=== PATIENT | female | born 1950 | race Caucasian/White ===

== ENCOUNTER 2019-01-01 10:41 | Emergency (ER) | payer OTHER ==
[~2019-01-01] VITALS: Ht 157.5 cm; Wt 49.9 kg
[~2019-01-01 10:41] MED LIST: HYDACE5; OXYC5
[2019-01-01] MEDS ORDERED: ESTR2 PO (11:07)
[2019-01-01] MEDS ORDERED: LISI5 PO (11:07)
[2019-01-01 12:20] LABS: BASOPHILS PERCENT AUTO 1 % (0-2); EOSINOPHILS ABSOLUTE AUTO 0.13 K/mm3 (0.00-0.68); EOSINOPHILS PERCENT AUTO 1 % (0-6); Hematocrit 38.8 % (33.0-51.0); Hemoglobin 12.8 g/dL (11.5-16.0); IMMATURE GRAN ABSOLUTE AUTO 0.03 K/mm3 (0.00-0.10); IMMATURE GRAN PERCENT AUTO 0 % (0-1); LYMPHOCYTES ABSOLUTE AUTO 1.57 K/mm3 (0.84-5.20); LYMPHOCYTES PERCENT AUTO 16 % (21-46); MONOCYTES ABSOLUTE AUTO 0.87 K/mm3 (0.16-1.47); MONOCYTES PERCENT AUTO 9 % (4-13); Mean Corpuscular HGB 32.1 pg (26.0-34.0); Mean Corpuscular Volume 97 fL (80-100); Mean Platelet Volume 9.8 fL (9.1-12.4); NEUTROPHILS ABSOLUTE AUTO 7.41 K/mm3 (1.96-9.15); NEUTROPHILS PERCENT AUTO 73 % (41-73); Platelet Count 288 K/mm3 (150-400); RDW Coefficient Variation 12.7 % (11.7-14.2); RDW Standard Deviation 45.5 fL (35.1-46.3); Red Blood Cell Count 3.99 M/mm3 (3.80-5.20); White Blood Cell Count 10.11 K/mm3 (4.00-11.30)
[2019-01-01 12:25] LABS: International Normalized Ratio 0.96; Prothrombin Time Results 10.2 Sec (9.7-11.5)
[2019-01-01 12:39] LABS: Albumin, Blood 3.6 g/dL (3.4-5.0); Bilirubin, Total 0.6 mg/dL (0.1-1.0); Bun/Creatinine Ratio 12.8 (12.0-20.0); Calcium, Blood 8.7 mg/dL (8.5-10.1); Creatinine, Blood 1.09 mg/dL (0.40-1.00); Globulin, Blood 3.7 g/dL (2.2-4.0); Potassium, Blood 3.7 mmol/L (3.5-5.5); Total Protein, Blood 7.3 g/dL (6.4-8.2)
[2019-01-01 12:57] LABS: Source, Urine Clean Catch
[2019-01-01 13:00] LABS: Appearance, Urine Hazy (Clear); Bilirubin, Urine Neg (Neg); Blood, Urine 4+ (Neg); Color, Urine Yellow (P-Yellow); Glucose Qualitative, Urine Neg (Neg); Ketones, Urine Neg (Neg); Leukocyte Esterase, Urine 3+ (Neg); Nitrite, Urine Pos (Neg); Protein, Urine 2+ (Neg); Urobilinogen, Urine NORM (Normal); pH, Urine 6.5 (5.0-8.0)
[2019-01-01 13:09] LABS: Bacteria Many /hpf; Squamous Epithelial Cells Rare /hpf (Few); White Blood Cells, Urine TNTC /hpf (0-5)
[2019-01-01] MEDS ORDERED: Keflex500 MG PO (14:54)
[2019-01-01] MEDS ORDERED: PERCOCET 10-321 EACH PO (14:54)
== END 2019-01-01 16:48 | disposition home or self-care (01) ==
LOC: ER 10:41
PROVIDERS: Physician Assistant
DX: S51.011A Laceration without foreign body of right elbow, initial encounter (principal); S30.1XXA Contusion of abdominal wall, initial encounter; S00.83XA Contusion of other part of head, initial encounter; S50.12XA Contusion of left forearm, initial encounter; S50.11XA Contusion of right forearm, initial encounter; S80.01XA Contusion of right knee, initial encounter; M25.511 Pain in right shoulder; N39.0 Urinary tract infection, site not specified; Z85.038 Personal history of other malignant neoplasm of large intestine; Z93.6 Other artificial openings of urinary tract status; Z90.49 Acquired absence of other specified parts of digestive tract; Z93.3 Colostomy status; Z79.899 Other long term (current) drug therapy; V43.52XA Car driver injured in collision with other type car in traffic accident, initial encounter
CPT/HCPCS: 71260; 73090; 73564; 74177; 80053; 81001; 83690; 85025; 85610; 87077; 87086; 87186; 90471; 90714; 96361; 96365-59; 96375; 96376; 99284-25; J0696; J1885; J2405; J3010; J7030; Q9967

== ENCOUNTER 2022-10-13 07:18 | Emergency (ER) | payer MEDICARE, OTHER ==
[~2022-10-13] VITALS: Ht 157.5 cm; Wt 49.9 kg
[~2022-10-13 07:18] MED LIST changes: +ESTR2 PO; +Keflex500 MG PO; +LISI5 PO; +PERCOCET 10-321 EACH PO
[2022-10-13] MEDS ORDERED: CLIMARA1 EACH TOP (07:38)
[2022-10-13] MEDS ORDERED: MELO7.5 (07:38)
[2022-10-13 08:10] LABS: BASOPHILS ABSOLUTE AUTO 0.12 K/mm3 (0.00-0.23); BASOPHILS PERCENT AUTO 0 % (0-2); EOSINOPHILS ABSOLUTE AUTO 0.03 K/mm3 (0.00-0.68); EOSINOPHILS PERCENT AUTO 0 % (0-6); Hematocrit 42.2 % (33.0-51.0); Hemoglobin 14.1 g/dL (11.5-16.0); IMMATURE GRAN ABSOLUTE AUTO 0.21 K/mm3 (0.00-0.10); IMMATURE GRAN PERCENT AUTO 1 % (0-1); LYMPHOCYTES ABSOLUTE AUTO 0.46 K/mm3 (0.84-5.20); LYMPHOCYTES PERCENT AUTO 2 % (21-46); MONOCYTES ABSOLUTE AUTO 0.89 K/mm3 (0.16-1.47); MONOCYTES PERCENT AUTO 3 % (4-13); Mean Corpuscular HGB 31.1 pg (26.0-34.0); Mean Corpuscular HGB Conc 33.4 g/dL (31.5-36.5); Mean Corpuscular Volume 93 fL (80-100); NEUTROPHILS ABSOLUTE AUTO 27.85 K/mm3 (1.96-9.15); NEUTROPHILS PERCENT AUTO 94 % (41-73); Platelet Count 400 K/mm3 (150-400); RDW Coefficient Variation 13.2 % (11.7-14.2); RDW Standard Deviation 45.2 fL (35.1-46.3); Red Blood Cell Count 4.53 M/mm3 (3.80-5.20); White Blood Cell Count 29.56 K/mm3 (4.00-11.30)
[2022-10-13 08:29] LABS: BAND PERCENT MAN 3 % (0-8); BASOPHILS PERCENT MAN 0 % (0-2); EOSINOPHILS PERCENT MAN 0 % (0-6); LYMPHOCYTES ABSOLUTE MAN 1.18 K/mm3 (0.84-5.20); LYMPHOCYTES PERCENT MAN 4 % (21-46); METAMYELOCYTE ABSOLUTE MAN 0.29 K/mm3 (0.00-0.00); METAMYELOCYTE PERCENT MAN 1 % (0-0); MONOCYTES ABSOLUTE MAN 0.59 K/mm3 (0.16-1.47); MONOCYTES PERCENT MAN 2 % (4-13); NEUTROPHILS ABSOLUTE MAN 27.49 K/mm3 (1.96-9.15); SEG NEUTROPHILS PERCENT MAN 90 % (41-73); TOTAL CELLS COUNTED 100
[2022-10-13 08:30] LABS: Albumin, Blood 3.2 g/dL (3.4-5.0); Albumin/Globulin Ratio 0.8 (0.8-1.8); Bilirubin, Total 0.4 mg/dL (0.1-1.0); Bun/Creatinine Ratio 18.7 (12.0-20.0); Calcium, Blood 9.3 mg/dL (8.5-10.1); Creatinine, Blood 2.09 mg/dL (0.40-1.00); Globulin, Blood 4.2 g/dL (2.2-4.0); Potassium, Blood 4.3 mmol/L (3.5-5.5); Total Protein, Blood 7.4 g/dL (6.4-8.2)
[2022-10-13 11:09] LABS: Source, Urine Straight Cath
[2022-10-13 11:15] LABS: Appearance, Urine Hazy (Clear); Bilirubin, Urine Neg (Neg); Blood, Urine 4+ (Neg); Color, Urine Yellow (P-Yellow); Glucose Qualitative, Urine Neg (Neg); Ketones, Urine Neg (Neg); Leukocyte Esterase, Urine 3+ (Neg); Nitrite, Urine Neg (Neg); Protein, Urine 2+ (Neg); Urobilinogen, Urine NORM (Normal)
[2022-10-13 11:32] LABS: Bacteria Many /hpf; Squamous Epithelial Cells Rare /hpf (Few)
[2022-10-13 14:45] VITALS: BP 120/71
== END 2022-10-13 14:50 | disposition short-term general hospital (02) ==
LOC: ER 07:18
PROVIDERS: Emergency Medicine
DX: N17.9 Acute kidney failure, unspecified (principal); N13.30 Unspecified hydronephrosis; N12 Tubulo-interstitial nephritis, not specified as acute or chronic
CPT/HCPCS: 51702; 74177; 80053; 81001; 85025; 87077; 87086; 87186; 96365-59; 96375-59; 96376-59; 99285-25; J0696; J2270; J2405; J7030; Q9967

== ENCOUNTER 2023-01-13 14:44 | Inpatient (IN) | payer MEDICARE, OTHER ==
[~2023-01-13] VITALS: Ht 157.5 cm; Wt 49.9 kg
[~2023-01-13 14:44] MED LIST changes: +CLIMARA1 EACH TOP; +MELO7.5
[2023-01-13 15:36] LABS: BASOPHILS ABSOLUTE AUTO 0.12 K/mm3 (0.00-0.23); BASOPHILS PERCENT AUTO 1 % (0-2); EOSINOPHILS ABSOLUTE AUTO 0.55 K/mm3 (0.00-0.68); EOSINOPHILS PERCENT AUTO 4 % (0-6); Hematocrit 41.8 % (33.0-51.0); Hemoglobin 13.3 g/dL (11.5-16.0); IMMATURE GRAN ABSOLUTE AUTO 0.13 K/mm3 (0.00-0.10); IMMATURE GRAN PERCENT AUTO 1 % (0-1); LYMPHOCYTES ABSOLUTE AUTO 1.94 K/mm3 (0.84-5.20); LYMPHOCYTES PERCENT AUTO 13 % (21-46); MONOCYTES ABSOLUTE AUTO 0.92 K/mm3 (0.16-1.47); MONOCYTES PERCENT AUTO 6 % (4-13); Mean Corpuscular HGB 28.5 pg (26.0-34.0); Mean Corpuscular HGB Conc 31.8 g/dL (31.5-36.5); Mean Corpuscular Volume 90 fL (80-100); Mean Platelet Volume 9.1 fL (9.1-12.4); NEUTROPHILS ABSOLUTE AUTO 11.59 K/mm3 (1.96-9.15); NEUTROPHILS PERCENT AUTO 76 % (41-73); Platelet Count 643 K/mm3 (150-400); RDW Coefficient Variation 14.2 % (11.7-14.2); RDW Standard Deviation 46.4 fL (35.1-46.3); Red Blood Cell Count 4.67 M/mm3 (3.80-5.20); White Blood Cell Count 15.25 K/mm3 (4.00-11.30)
[2023-01-13 16:09] LABS: Albumin, Blood 3.4 g/dL (3.4-5.0); Albumin/Globulin Ratio 0.7 (0.8-1.8); Bilirubin, Total 0.2 mg/dL (0.1-1.0); Bun/Creatinine Ratio 81.9 (12.0-20.0); Calcium, Blood 9.5 mg/dL (8.5-10.1); Creatinine, Blood 1.66 mg/dL (0.40-1.00); Potassium, Blood 4.8 mmol/L (3.5-5.5); Total Protein, Blood 8.4 g/dL (6.4-8.2)
[2023-01-14] VITALS (56 sets, daily range): BP systolic 82–134; BP diastolic 42–100
[2023-01-14 05:22] LABS: BASOPHILS ABSOLUTE AUTO 0.14 K/mm3 (0.00-0.23); BASOPHILS PERCENT AUTO 1 % (0-2); EOSINOPHILS ABSOLUTE AUTO 0.74 K/mm3 (0.00-0.68); EOSINOPHILS PERCENT AUTO 6 % (0-6); Hematocrit 33.7 % (33.0-51.0); Hemoglobin 10.5 g/dL (11.5-16.0); IMMATURE GRAN PERCENT AUTO 1 % (0-1); LYMPHOCYTES ABSOLUTE AUTO 2.31 K/mm3 (0.84-5.20); LYMPHOCYTES PERCENT AUTO 17 % (21-46); MONOCYTES ABSOLUTE AUTO 1.01 K/mm3 (0.16-1.47); MONOCYTES PERCENT AUTO 8 % (4-13); Mean Corpuscular HGB 28.5 pg (26.0-34.0); Mean Corpuscular HGB Conc 31.2 g/dL (31.5-36.5); Mean Corpuscular Volume 91 fL (80-100); Mean Platelet Volume 9.2 fL (9.1-12.4); NEUTROPHILS ABSOLUTE AUTO 9.21 K/mm3 (1.96-9.15); NEUTROPHILS PERCENT AUTO 68 % (41-73); Platelet Count 506 K/mm3 (150-400); RDW Coefficient Variation 14.5 % (11.7-14.2); RDW Standard Deviation 48.5 fL (35.1-46.3); Red Blood Cell Count 3.69 M/mm3 (3.80-5.20); White Blood Cell Count 13.51 K/mm3 (4.00-11.30)
[2023-01-14 05:59] LABS: Albumin, Blood 2.5 g/dL (3.4-5.0); Albumin/Globulin Ratio 0.7 (0.8-1.8); Bilirubin, Total 0.2 mg/dL (0.1-1.0); Bun/Creatinine Ratio 82.3 (12.0-20.0); Calcium, Blood 7.7 mg/dL (8.5-10.1); Creatinine, Blood 1.41 mg/dL (0.40-1.00); Globulin, Blood 3.7 g/dL (2.2-4.0); Potassium, Blood 4.3 mmol/L (3.5-5.5); Total Protein, Blood 6.2 g/dL (6.4-8.2)
[2023-01-14] MEDS ORDERED: EUTHYROX88 MCG PO (07:51)
--- NOTE | 2023-01-14 09:12 | NUR ---
AM NOTE... ASSUMED CARE OF PT AT 0700, PT IS A&Ox4. PT ARRIVED TO THE UNIT FROM THE ER WITH LEVOPHED RUNNING AT 0.5MCG/MIN, THIS WAS STOPPED D/T PT'S MAPS >75. SHE IS IN SR W/PACs IN THE 70'S. NO EDEMA IS NOTED ON THIS ASSESSMENT. SHE IS ON RA WITH O2 SATS>95% L/S CLEAR T/O. BT PRESENT AND HYPERACTIVE. PT HAS A COLOSTOMY AND SUPERPUBIC CATH IN PLACE, THE COLOSTOMY APPLIANCE WAS LEAKING ON ADMIT AND CHANGED BY JANES JIMENEZ. THE PT'S SUPERPUBIC CATH WAS ALSO LEAKING AROUND THE SITE. THE PT'S SKIN AROUND THE SUPERPUBIC SITE IS VERY RED AND EXCORIATED (PICTURES IN THE CHART.) THE PT'S SUPERPUBIC CATH WAS IRRIGATED BY GILL JIMENEZ, ONCE IRRIGATED THE CATH DRAINED YELLOW URINE WITH COPIOUS AMOUNTS OF VERY THICK BROWN/SHERMAN SEDIMENT FOR A FEW MINS THEN THE FLOW WOULD STOP UNTIL IT WAS IRRIGATED AGAIN. CALL LIGHT IN REACH WILL CONTINUE TO MONITOR
--- NOTE | 2023-01-14 15:43 | NUR ---
Pt. is awake in bed and welcomes my visit. Spouse is present. Both Pt. and spouse are unsettled about delays in addressing her condition. Both verbalize a desire to get it addressed quickly. Listen with empathy and a calming presence. Facilitate a life review and consider matters of healthcare and pt. medical issues. Spouse became a primary spokesman during the visit. Prayed with Pt. Pt. displayed evidence of ambivilance toward prayer, but did verbalize gratitude for the spiritual care visit.
--- NOTE | 2023-01-14 17:19 | NUR ---
SHIFT SUMMARY.... PT'S VS HAVE BEEN STABLE T/O THIS SHIFT, SHE WAS ON 0.5MCG/MIN OF LEVOPHED SHORTLY BEFORE ARRIVING TO THIS UNIT WHEN IT WAS STOPPED AT 0730. THE PT HAS BEEN MEDICATED FOR PAIN PER EMAR WITH GOOD RESULTS. THE PT'S SUPERPUBIC JIMENEZ HAS BEEN CLOGGED MOST OF THIS SHIFT, IT WILL DRAIN WHEN IRRIGATED BUT QUICKLY CLOGGES AGAIN, THE PT'S SUPERPUBIC SITE IS DRAINING URINE AND STOOL FROM THE STOMA, THE PT'S COLOSTOMY HAS SCANT OUTPUT THIS SHIFT. THE PT'S WAS AT THE BEDSIDE MOST OF THIS SHIFT. CALL LIGHT IN REACH WILL CONTINUE TO MONITOR UNTIL REPORT IS GIVEN TO ONCOMING RN.
[2023-01-14 17:21] LABS: Albumin, Blood 2.8 g/dL (3.4-5.0); Anion Gap 9 mmol/L (6-16); Blood Urea Nitrogen 89 mg/dL (8-24); Bun/Creatinine Ratio 77.4 (12.0-20.0); CO2, Blood 20 mmol/L (21-32); Calcium, Blood 7.8 mg/dL (8.5-10.1); Chloride, Blood 113 mmol/L (98-108); Creatinine, Blood 1.15 mg/dL (0.40-1.00); Glomerular Filtration Rate 51 (60-); Glucose, Blood 105 mg/dL (70-99); Phosphorus, Blood 2.9 mg/dL (2.5-4.9); Potassium, Blood 3.8 mmol/L (3.5-5.5); Sodium, Blood 142 mmol/L (136-145)
[2023-01-14 17:33] LABS: Source, Urine Suprapubic Cath
[2023-01-14 17:50] LABS: Appearance, Urine Cloudy (Clear); Blood, Urine 5+ (Neg); Color, Urine Brown (P-Yellow); Glucose Qualitative, Urine Neg (Neg); Ketones, Urine Neg (Neg); Leukocyte Esterase, Urine 3+ (Neg); Nitrite, Urine Neg (Neg); Protein, Urine 2+ (Neg); Urobilinogen, Urine NORM (Normal)
[2023-01-14 18:27] LABS: Bilirubin, Urine 1+ (Neg)
[2023-01-14 18:30] LABS: Bacteria Many /hpf; Hyaline Casts 0-2 /lpf (0-2); Red Blood Cells, Urine 25-50 /hpf (0-2); Squamous Epithelial Cells Few /hpf (Few)
[2023-01-14 18:31] LABS: Amorphous Light (0-Heavy)
--- NOTE | 2023-01-14 21:30 | NUR ---
ABD DRESSING CHANGED SATURATED DRESSING TO ABD REMOVED, SITE CLEANSED WITH WOUND CLEANSER. TWO MEXTRA SUPERABSORBENT PADS PLACED OVER CATHETER INSERTION SITE, ABD PLACED OVER TOP WITH FABRIC TAPE. EDUCATED PATIENT TO NOTIFY NURSING STAFF IF THERE IS ANY LEAKAGE FOR DRESSING CHANGE.
--- NOTE | 2023-01-14 21:57 | NUR ---
PAIN PATIENT SUPRAPUBIC CATHETER DRESSING BECAME SOILED AND WAS LEAKING ONTO THE BED. DRESSING CHANGED AND PATIENT C/O 09/18 PAIN. CALL MADE TO KAYDEN WRIGHT AND ORDER RECEIVED FOR PERCOCET 5-325MG PO Q4H PRN.
[2023-01-15] VITALS (34 sets, daily range): BP systolic 85–136; BP diastolic 49–89
--- NOTE | 2023-01-15 02:04 | NUR ---
DRESSING CHANGE SUPRAPUBIC CATHETER DRESSING CHANGED FOR THE SECOND TIME THIS SHIFT AFTER BECOMING SATURATED WITH URINE AND STOOL. DRESSIING REPLACED SAME PREVIOUS-SEE NURSE NOTE.
[2023-01-15 03:24] LABS: BASOPHILS ABSOLUTE AUTO 0.15 K/mm3 (0.00-0.23); BASOPHILS PERCENT AUTO 2 % (0-2); EOSINOPHILS ABSOLUTE AUTO 0.75 K/mm3 (0.00-0.68); EOSINOPHILS PERCENT AUTO 8 % (0-6); Hematocrit 31.6 % (33.0-51.0); IMMATURE GRAN ABSOLUTE AUTO 0.05 K/mm3 (0.00-0.10); IMMATURE GRAN PERCENT AUTO 1 % (0-1); LYMPHOCYTES ABSOLUTE AUTO 2.47 K/mm3 (0.84-5.20); LYMPHOCYTES PERCENT AUTO 26 % (21-46); MONOCYTES ABSOLUTE AUTO 0.76 K/mm3 (0.16-1.47); MONOCYTES PERCENT AUTO 8 % (4-13); Mean Corpuscular HGB 28.6 pg (26.0-34.0); Mean Corpuscular HGB Conc 31.6 g/dL (31.5-36.5); Mean Corpuscular Volume 90 fL (80-100); NEUTROPHILS ABSOLUTE AUTO 5.34 K/mm3 (1.96-9.15); NEUTROPHILS PERCENT AUTO 56 % (41-73); Platelet Count 465 K/mm3 (150-400); RDW Coefficient Variation 14.3 % (11.7-14.2); RDW Standard Deviation 47.4 fL (35.1-46.3); White Blood Cell Count 9.52 K/mm3 (4.00-11.30)
[2023-01-15 03:46] LABS: Bun/Creatinine Ratio 50.8 (12.0-20.0); Calcium, Blood 7.3 mg/dL (8.5-10.1); Creatinine, Blood 1.18 mg/dL (0.40-1.00); Potassium, Blood 3.6 mmol/L (3.5-5.5)
--- NOTE | 2023-01-15 06:44 | NUR ---
SHIFT SUMMARY PATIENT SUPRAPUBIC CATHETER LEAKING PERSISTS T/O SHIFT. DRESSING CHANGED TWICE-SEE PREVIOUS NURSE NOTES. MEDICATED FOR PAIN PER EMAR. LEVOPHED REMAINED OFF WITH MAPS 60'S-70'S. NO OTHER CHANGES THIS SHIFT.
--- NOTE | 2023-01-15 07:27 | NUR ---
AM NOTE... ASSUMED CARE OF PT AT 0700. PT IS A&Ox4. SHE IS IN SR W/PACs IN THE 50'S WHILE ASLEEP 60'S-70'S WHILE AWAKE. BP IS STABLE WITH MAPS>75. NO EDEMA IS NOTED ON ASSESSMENT. SHE IS ON RA WITH O2 SATS>95% L/S CLEAR T/O. BT PRESENT AND HYPERACTIVE, ABD IS TENDER TO PALPATION. COLOSTOMY IS PINK AND MOIST DRAINING LIQUID BROWN STOOL TO GRAVITY. THE PT'S SUPERPUBIC IS LEAKING URINE AND STOOL, THE SKIN OF HER ABD IS EXCORIATED AND RED. ABD PADS AND ABSORBANT PADS ARE CURRENTLY C/D/I AND CHANGED FREQUENTLY D/T COPIOUS AMOUNTS OF DRAINAGE. WILL CONTINUE TO MONITOR.
--- NOTE | 2023-01-15 17:37 | NUR ---
SHIFT SUMMARY... NO ACUTE NEGATIVE CHANGES NOTED THIS SHIFT. PT'S VS STABLE. PT HAS BEEN MEDICATED FOR PAIN PER EMAR WITH GOOD RESULTS. THE PT'S SUPERPUBIC CATH HAS DONE WELL WITH THE FLEXISEAL SET AROUND THE STOMA AND SET TO SUCTION, THIS HAS IMPROVED THE PT'S SKIN CONDITION GREATLY OVER THIS SHIFT. PLANS FOR THE PT TO TRANSFER TO THE MEDICAL FLOOR. CALL LIGHT IN REACH WILL CONTINUE TO MONITOR UNTIL REPORT IS GIVEN TO MED FLOOR RN
--- NOTE | 2023-01-15 19:01 | NUR ---
PT ARRIVED TO ROOM FROM ICU15 VIA BED. TRANSFERRED TO BED AND CLEANED UP. BAG ATTACHED TO CONDUIT STOMA NOW ON SUCTIONED, WHICH WAS BEING DONE ACCORDING TO PERSON TRANSFERRING PT. SHE IS A/OX4 AND APPROPRIATE. WILL REPORT TO ONCOMING SHIFT.
[2023-01-16 03:08] VITALS: BP 148/66
--- NOTE | 2023-01-16 05:12 | NUR ---
SHIFT SUMMARY. NO ACUTE CHANGES NOTED. PATIENTS PAIN ASSESSED AND MEDICATED PER EMAR. PATIENT IS ALERT, ABLE TO MAKE HER NEEDS KNOWN, AND CALLS APPROPRIATELY. PATIENT HAS A FLEXISEAL AROUND THE STOMA SET TO SUCTION. SUPRAPUBIC CATHETER IS DRANING STOOL AND URINE. SCANT AMOUNT OF DRAINAGE FROM FLEXISEAL NOTED IN ABDOMINAL REGION. BED IS LOCKED IN THE LOWEST POSITION WITH CALL LIGHT IN REACH.
[2023-01-16 05:26] LABS: Hematocrit 30.7 % (33.0-51.0); Hemoglobin 9.7 g/dL (11.5-16.0); Mean Corpuscular HGB 28.8 pg (26.0-34.0); Mean Corpuscular HGB Conc 31.6 g/dL (31.5-36.5); Mean Corpuscular Volume 91 fL (80-100); Mean Platelet Volume 9.1 fL (9.1-12.4); Platelet Count 477 K/mm3 (150-400); RDW Coefficient Variation 14.5 % (11.7-14.2); RDW Standard Deviation 48.2 fL (35.1-46.3); Red Blood Cell Count 3.37 M/mm3 (3.80-5.20); White Blood Cell Count 11.12 K/mm3 (4.00-11.30)
[2023-01-16 05:52] LABS: Bun/Creatinine Ratio 37.3 (12.0-20.0); Calcium, Blood 7.6 mg/dL (8.5-10.1); Creatinine, Blood 0.99 mg/dL (0.40-1.00); Potassium, Blood 3.8 mmol/L (3.5-5.5)
[2023-01-16 07:26] VITALS: BP 128/62
[2023-01-16] MEDS ORDERED: ACET325 PO (11:25)
[2023-01-16] MEDS ORDERED: CEFU500T30 PO (11:26)
--- NOTE | 2023-01-16 13:18 | NUR ---
WOUND CARE PT WITH COPIOUS AMOUNTS OF URINE/FECES DRAINING FROM SUPRAPUBIC CATH SITE. SHE REPORTS THAT SHE WILL REQUIRE SURGICAL INTERVENTION AT [facility]. UNFORTUNATELY UNTIL THAT TIME SHE WILL NEED TO MANAGE DRAINAGE. PERISKIN AROUND SITE IS EXTREMELY DENUDED. WE ARE UNABLE TO POUCH D/T CATHETER. SHE WILL REQUIRE MULTIPLE DRESSING CHANGES DAILY. WOULD RECOMMEND NICKEL THICK BARRIER CREAM WITH ANTIFUNGAL POWDER AT EACH CHANGE COVERED BY GAUZE AND EXU-DRY, TAPE. WOULD APPLY HYDROCOLLOID DRESSING OVER OSTOMY APPLIANCE TO PREVENT DRAINAGE FROM SEEPING INTO APPLIANCE.
== END 2023-01-16 13:19 | disposition home health service (06) | DRG 698 ==
LOC: ER 14:44 → ERHOLD 14:45 → ICUE 14:45 → ERHOLD 01-14 07:31 → ICUE 01-14 07:31 → MEDS 01-15 18:22 → ENPENDDIS 01-16 10:59 → MEDS 01-16 13:19
PROVIDERS: Emergency Medicine; Internal Medicine; ADMIT Internal Medicine
PROC: 3E033XZ Introduction of Vasopressor into Peripheral Vein, Percutaneous Approach (ICD-10-PCS; principal; 2023-01-14)
DX: T83.518A Infection and inflammatory reaction due to other urinary catheter, initial encounter (principal); A41.9 Sepsis, unspecified organism; G93.41 Metabolic encephalopathy; J18.9 Pneumonia, unspecified organism; R65.21 Severe sepsis with septic shock; N17.9 Acute kidney failure, unspecified; E87.20 Acidosis, unspecified; L03.311 Cellulitis of abdominal wall; N12 Tubulo-interstitial nephritis, not specified as acute or chronic; K94.09 Other complications of colostomy; E03.9 Hypothyroidism, unspecified; E86.0 Dehydration; F17.210 Nicotine dependence, cigarettes, uncomplicated; Z85.828 Personal history of other malignant neoplasm of skin; Z28.21 Immunization not carried out because of patient refusal
CPT/HCPCS: 36415; 71045; 74177; 80048; 80053; 80069; 81001; 83605; 83880; 84145; 85025; 85027; 87040; 87086; 96361; 96365; 96367; 96375; 96376; 99285-25; A9270; G0378; J0456; J0696; J1650; J2270; J2405; J3010; J7030; J7050; J7060; Q9967

== ENCOUNTER → 2023-02-23 | Outpatient (CLI) | payer MEDICARE, OTHER ==
[~2023-02-23] MED LIST changes: +ACET325 PO; +CEFU500T30 PO; +EUTHYROX88 MCG PO
[2023-02-23 11:42] LABS: BASOPHILS ABSOLUTE AUTO 0.19 K/mm3 (0.00-0.23); BASOPHILS PERCENT AUTO 2 % (0-2); EOSINOPHILS ABSOLUTE AUTO 0.77 K/mm3 (0.00-0.68); EOSINOPHILS PERCENT AUTO 7 % (0-6); Hematocrit 33.1 % (33.0-51.0); IMMATURE GRAN ABSOLUTE AUTO 0.04 K/mm3 (0.00-0.10); IMMATURE GRAN PERCENT AUTO 0 % (0-1); LYMPHOCYTES ABSOLUTE AUTO 1.65 K/mm3 (0.84-5.20); LYMPHOCYTES PERCENT AUTO 14 % (21-46); MONOCYTES ABSOLUTE AUTO 1.07 K/mm3 (0.16-1.47); MONOCYTES PERCENT AUTO 9 % (4-13); Mean Corpuscular HGB 28.2 pg (26.0-34.0); Mean Corpuscular HGB Conc 30.2 g/dL (31.5-36.5); Mean Corpuscular Volume 93 fL (80-100); Mean Platelet Volume 9.6 fL (9.1-12.4); NEUTROPHILS ABSOLUTE AUTO 7.79 K/mm3 (1.96-9.15); NEUTROPHILS PERCENT AUTO 68 % (41-73); Platelet Count 528 K/mm3 (150-400); RDW Coefficient Variation 15.9 % (11.7-14.2); RDW Standard Deviation 54.3 fL (35.1-46.3); Red Blood Cell Count 3.55 M/mm3 (3.80-5.20); White Blood Cell Count 11.51 K/mm3 (4.00-11.30)
[2023-02-23 12:04] LABS: Alanine Aminotransfer (ALT/SGP 27 U/L (12-78); Albumin, Blood 2.4 g/dL (3.4-5.0); Albumin/Globulin Ratio 0.5 (0.8-1.8); Alk Phos 83 U/L (50-136); Anion Gap 6 mmol/L (6-16); Aspartate Aminotrans (AST/SGOT 13 U/L (12-37); Bilirubin, Total 0.3 mg/dL (0.1-1.0); Blood Urea Nitrogen 72 mg/dL (8-24); Bun/Creatinine Ratio 69.2 (12.0-20.0); CO2, Blood 26 mmol/L (21-32); Calcium, Blood 9.2 mg/dL (8.5-10.1); Chloride, Blood 110 mmol/L (98-108); Creatinine, Blood 1.04 mg/dL (0.40-1.00); Globulin, Blood 4.4 g/dL (2.2-4.0); Glomerular Filtration Rate 58 (60-); Glucose, Blood 97 mg/dL (70-99); Magnesium, Blood 2.4 mg/dL (1.6-2.4); Potassium, Blood 4.6 mmol/L (3.5-5.5); Prealbumin, Blood 18.3 mg/dL (20.0-40.0); Sodium, Blood 142 mmol/L (136-145); Total Protein, Blood 6.8 g/dL (6.4-8.2); Triglycerides 113 mg/dL (30-160)
== END ==
LOC: LAB 10:58 → LAB SHORT 10:58
PROVIDERS: Internal Medicine Nephrology
DX: N99.538 Other complication of continent stoma of urinary tract (principal); D50.9 Iron deficiency anemia, unspecified; E86.9 Volume depletion, unspecified; N18.32 Chronic kidney disease, stage 3b; E55.9 Vitamin D deficiency, unspecified
CPT/HCPCS: 80053; 82330; 83735; 84134; 84478; 85025; 86140

== ENCOUNTER → 2023-03-02 | Outpatient (CLI) | payer MEDICARE, OTHER ==
[2023-03-02 11:38] LABS: BASOPHILS ABSOLUTE AUTO 0.14 K/mm3 (0.00-0.23); BASOPHILS PERCENT AUTO 1 % (0-2); EOSINOPHILS ABSOLUTE AUTO 0.74 K/mm3 (0.00-0.68); EOSINOPHILS PERCENT AUTO 7 % (0-6); Hematocrit 34.1 % (33.0-51.0); Hemoglobin 10.5 g/dL (11.5-16.0); IMMATURE GRAN ABSOLUTE AUTO 0.06 K/mm3 (0.00-0.10); IMMATURE GRAN PERCENT AUTO 1 % (0-1); LYMPHOCYTES ABSOLUTE AUTO 1.79 K/mm3 (0.84-5.20); LYMPHOCYTES PERCENT AUTO 16 % (21-46); MONOCYTES ABSOLUTE AUTO 0.92 K/mm3 (0.16-1.47); MONOCYTES PERCENT AUTO 8 % (4-13); Mean Corpuscular HGB 28.2 pg (26.0-34.0); Mean Corpuscular HGB Conc 30.8 g/dL (31.5-36.5); Mean Corpuscular Volume 92 fL (80-100); Mean Platelet Volume 9.8 fL (9.1-12.4); NEUTROPHILS PERCENT AUTO 68 % (41-73); Platelet Count 516 K/mm3 (150-400); RDW Coefficient Variation 15.9 % (11.7-14.2); RDW Standard Deviation 53.4 fL (35.1-46.3); Red Blood Cell Count 3.72 M/mm3 (3.80-5.20); White Blood Cell Count 11.25 K/mm3 (4.00-11.30)
[2023-03-02 12:07] LABS: Alanine Aminotransfer (ALT/SGP 84 U/L (12-78); Albumin, Blood 2.7 g/dL (3.4-5.0); Albumin/Globulin Ratio 0.6 (0.8-1.8); Alk Phos 125 U/L (50-136); Anion Gap 7 mmol/L (6-16); Aspartate Aminotrans (AST/SGOT 36 U/L (12-37); Bilirubin, Total 0.2 mg/dL (0.1-1.0); Blood Urea Nitrogen 88 mg/dL (8-24); Bun/Creatinine Ratio 77.2 (12.0-20.0); C-REACTIVE PROTEIN, EXT RANGE 0.991 mg/dL (0.000-0.300); CO2, Blood 23 mmol/L (21-32); Calcium, Blood 9.5 mg/dL (8.5-10.1); Chloride, Blood 109 mmol/L (98-108); Creatinine, Blood 1.14 mg/dL (0.40-1.00); Globulin, Blood 4.7 g/dL (2.2-4.0); Glomerular Filtration Rate 52 (60-); Glucose, Blood 136 mg/dL (70-99); Magnesium, Blood 2.5 mg/dL (1.6-2.4); Potassium, Blood 3.8 mmol/L (3.5-5.5); Prealbumin, Blood 32.5 mg/dL (20.0-40.0); Sodium, Blood 139 mmol/L (136-145); Total Protein, Blood 7.4 g/dL (6.4-8.2); Triglycerides 118 mg/dL (30-160)
== END ==
LOC: LAB SHORT 11:18 → LAB 11:18
PROVIDERS: Surgery
DX: E43 Unspecified severe protein-calorie malnutrition (principal); N99.538 Other complication of continent stoma of urinary tract; E86.9 Volume depletion, unspecified; D50.9 Iron deficiency anemia, unspecified; N18.32 Chronic kidney disease, stage 3b; N32.1 Vesicointestinal fistula; L03.311 Cellulitis of abdominal wall
CPT/HCPCS: 80053; 82330; 83735; 84134; 84478; 85025; 86140

== ENCOUNTER → 2023-03-09 | Outpatient (CLI) | payer MEDICARE, OTHER ==
[2023-03-09 16:00] LABS: Alanine Aminotransfer (ALT/SGP 66 U/L (12-78); Albumin/Globulin Ratio 0.7 (0.8-1.8); Alk Phos 122 U/L (50-136); Anion Gap 10 mmol/L (6-16); Aspartate Aminotrans (AST/SGOT 23 U/L (12-37); Bilirubin, Total 0.3 mg/dL (0.1-1.0); Blood Urea Nitrogen 130 mg/dL (8-24); Bun/Creatinine Ratio 84.4 (12.0-20.0); CO2, Blood 25 mmol/L (21-32); Calcium, Blood 9.5 mg/dL (8.5-10.1); Chloride, Blood 97 mmol/L (98-108); Creatinine, Blood 1.54 mg/dL (0.40-1.00); Globulin, Blood 4.6 g/dL (2.2-4.0); Glomerular Filtration Rate 36 (60-); Glucose, Blood 107 mg/dL (70-99); Magnesium, Blood 3.2 mg/dL (1.6-2.4); Potassium, Blood 4.2 mmol/L (3.5-5.5); Prealbumin, Blood 34.3 mg/dL (20.0-40.0); Sodium, Blood 132 mmol/L (136-145); Total Protein, Blood 7.6 g/dL (6.4-8.2); Triglycerides 110 mg/dL (30-160)
== END | disposition home or self-care (01) ==
LOC: LAB 14:51 → LAB SHORT 14:51
PROVIDERS: Surgery
DX: E43 Unspecified severe protein-calorie malnutrition (principal); E86.9 Volume depletion, unspecified; D50.9 Iron deficiency anemia, unspecified; N18.32 Chronic kidney disease, stage 3b; N32.1 Vesicointestinal fistula; N99.538 Other complication of continent stoma of urinary tract
CPT/HCPCS: 80053; 82330; 83735; 84134; 84478

== ENCOUNTER → 2023-03-16 | Outpatient (CLI) | payer MEDICARE, OTHER ==
[2023-03-16 15:42] LABS: BASOPHILS PERCENT AUTO 1 % (0-2); EOSINOPHILS ABSOLUTE AUTO 0.14 K/mm3 (0.00-0.68); EOSINOPHILS PERCENT AUTO 1 % (0-6); Hematocrit 36.3 % (33.0-51.0); Hemoglobin 11.7 g/dL (11.5-16.0); IMMATURE GRAN ABSOLUTE AUTO 0.08 K/mm3 (0.00-0.10); IMMATURE GRAN PERCENT AUTO 1 % (0-1); LYMPHOCYTES PERCENT AUTO 6 % (21-46); MONOCYTES ABSOLUTE AUTO 0.81 K/mm3 (0.16-1.47); MONOCYTES PERCENT AUTO 5 % (4-13); Mean Corpuscular HGB 27.5 pg (26.0-34.0); Mean Corpuscular HGB Conc 32.2 g/dL (31.5-36.5); Mean Corpuscular Volume 85 fL (80-100); Mean Platelet Volume 10.9 fL (9.1-12.4); NEUTROPHILS ABSOLUTE AUTO 13.36 K/mm3 (1.96-9.15); NEUTROPHILS PERCENT AUTO 87 % (41-73); Platelet Count 461 K/mm3 (150-400); RDW Standard Deviation 46.6 fL (35.1-46.3); Red Blood Cell Count 4.25 M/mm3 (3.80-5.20); White Blood Cell Count 15.39 K/mm3 (4.00-11.30)
[2023-03-16 16:23] LABS: Prealbumin, Blood 30.7 mg/dL (20.0-40.0)
[2023-03-16 16:28] LABS: Albumin, Blood 3.1 g/dL (3.4-5.0); Albumin/Globulin Ratio 0.7 (0.8-1.8); Bilirubin, Total 0.2 mg/dL (0.1-1.0); Bun/Creatinine Ratio 111.2 (12.0-20.0); Calcium, Blood 10.7 mg/dL (8.5-10.1); Creatinine, Blood 1.6 mg/dL (0.40-1.00); Globulin, Blood 4.5 g/dL (2.2-4.0); Potassium, Blood 3.8 mmol/L (3.5-5.5); Total Protein, Blood 7.6 g/dL (6.4-8.2)
[2023-03-17 10:12] LABS: Magnesium, Blood 3.5 mg/dL (1.6-2.4); Phosphorus, Blood 4.6 mg/dL (2.5-4.9)
== END ==
LOC: LAB 15:05 → LAB SHORT 15:05
PROVIDERS: Surgery
DX: E43 Unspecified severe protein-calorie malnutrition (principal); N99.538 Other complication of continent stoma of urinary tract; E86.9 Volume depletion, unspecified; D50.9 Iron deficiency anemia, unspecified; N18.32 Chronic kidney disease, stage 3b
CPT/HCPCS: 80053; 82330; 83735; 84100; 84134; 85025

== ENCOUNTER → 2023-03-23 | Outpatient (CLI) | payer MEDICARE, OTHER ==
[2023-03-23 14:07] LABS: Magnesium, Blood 3.1 mg/dL (1.6-2.4); Phosphorus, Blood 5.7 mg/dL (2.5-4.9); Triglycerides 81 mg/dL (30-160)
[2023-03-24 19:11] LABS: A/G RATIO 1.2 (1.2-2.2); ALKALINE PHOSPHATASE, S 92 IU/L (44-121); ALT (SGPT) 15 IU/L (0-32); AST (SGOT) 13 IU/L (0-40); BILIRUBIN, TOTAL <0.2 mg/dL (0.0-1.2); BUN 117 mg/dL (8-27); BUN/CREATININE RATIO 70 (12-28); CALCIUM, SERUM 9.1 mg/dL (8.7-10.3); CARBON DIOXIDE, TOTAL 15 mmol/L (20-29); CHLORIDE, SERUM 100 mmol/L (96-106); CREATININE, SERUM 1.68 mg/dL (0.57-1.00); GLOBULIN, TOTAL 2.9 g/dL (1.5-4.5); GLUCOSE, SERUM 64 mg/dL (70-99); POTASSIUM, SERUM 4.1 mmol/L (3.5-5.2); PROTEIN, TOTAL, SERUM 6.3 g/dL (6.0-8.5); SODIUM, SERUM 135 mmol/L (134-144)
== END ==
LOC: LAB 11:15 → LAB SHORT 11:15
PROVIDERS: Surgery
DX: E43 Unspecified severe protein-calorie malnutrition (principal); N99.538 Other complication of continent stoma of urinary tract; E86.9 Volume depletion, unspecified; D50.9 Iron deficiency anemia, unspecified; M83.2 Adult osteomalacia due to malabsorption; N32.1 Vesicointestinal fistula; L03.311 Cellulitis of abdominal wall
CPT/HCPCS: 80053; 83735; 84100; 84478

== ENCOUNTER → 2023-05-27 | Outpatient (CLI) | payer MEDICARE, OTHER ==
[2023-05-27 16:21] LABS: Alanine Aminotransfer (ALT/SGP 9 U/L (12-78); Albumin, Blood 2.5 g/dL (3.4-5.0); Albumin/Globulin Ratio 0.5 (0.8-1.8); Alk Phos 66 U/L (50-136); Anion Gap 12 mmol/L (3-11); Aspartate Aminotrans (AST/SGOT 13 U/L (12-37); Bilirubin, Total 0.3 mg/dL (0.1-1.0); Blood Urea Nitrogen 49 mg/dL (8-24); Bun/Creatinine Ratio 71.6 (12.0-20.0); CO2, Blood 20 mmol/L (21-32); Calcium, Blood 10.1 mg/dL (8.5-10.1); Chloride, Blood 110 mmol/L (98-108); Creatinine, Blood 0.68 mg/dL (0.40-1.00); Globulin, Blood 4.7 g/dL (2.2-4.0); Glomerular Filtration Rate 93 (60-); Glucose, Blood 93 mg/dL (70-99); Magnesium, Blood 2.7 mg/dL (1.6-2.4); Phosphorus, Blood 3.3 mg/dL (2.5-4.9); Potassium, Blood 4.7 mmol/L (3.5-5.5); Sodium, Blood 137 mmol/L (136-145); Total Protein, Blood 7.2 g/dL (6.4-8.2); Triglycerides 83 mg/dL (30-160)
[2023-05-27 16:34] LABS: BASOPHILS ABSOLUTE AUTO 0.13 K/mm3 (0.00-0.23); BASOPHILS PERCENT AUTO 1 % (0-2); EOSINOPHILS ABSOLUTE AUTO 0.76 K/mm3 (0.00-0.68); EOSINOPHILS PERCENT AUTO 6 % (0-6); Hematocrit 32.9 % (33.0-51.0); Hemoglobin 10.3 g/dL (11.5-16.0); IMMATURE GRAN ABSOLUTE AUTO 0.06 K/mm3 (0.00-0.10); IMMATURE GRAN PERCENT AUTO 0 % (0-1); LYMPHOCYTES ABSOLUTE AUTO 1.93 K/mm3 (0.84-5.20); LYMPHOCYTES PERCENT AUTO 14 % (21-46); MONOCYTES ABSOLUTE AUTO 1.15 K/mm3 (0.16-1.47); MONOCYTES PERCENT AUTO 8 % (4-13); Mean Corpuscular HGB Conc 31.3 g/dL (31.5-36.5); Mean Corpuscular Volume 86 fL (80-100); NEUTROPHILS ABSOLUTE AUTO 9.78 K/mm3 (1.96-9.15); NEUTROPHILS PERCENT AUTO 71 % (41-73); RDW Coefficient Variation 17.8 % (11.7-14.2); RDW Standard Deviation 56.3 fL (35.1-46.3); Red Blood Cell Count 3.81 M/mm3 (3.80-5.20); White Blood Cell Count 13.81 K/mm3 (4.00-11.30)
[2023-05-27 17:08] LABS: Mean Platelet Volume 9.2 fL (9.1-12.4); Platelet Count 813 K/mm3 (150-400)
== END ==
LOC: LAB 14:53 → LAB SHORT 14:53
PROVIDERS: Surgery
DX: N32.1 Vesicointestinal fistula (principal); E86.0 Dehydration; N19 Unspecified kidney failure; E43 Unspecified severe protein-calorie malnutrition
CPT/HCPCS: 80053; 83735; 84100; 84478; 85025

== ENCOUNTER → 2023-06-01 | Outpatient (CLI) | payer MEDICARE, OTHER ==
[2023-06-01 15:49] LABS: Alanine Aminotransfer (ALT/SGP 10 U/L (12-78); Albumin, Blood 2.5 g/dL (3.4-5.0); Albumin/Globulin Ratio 0.5 (0.8-1.8); Alk Phos 62 U/L (50-136); Anion Gap 10 mmol/L (3-11); Aspartate Aminotrans (AST/SGOT 11 U/L (12-37); Bilirubin, Total 0.3 mg/dL (0.1-1.0); Blood Urea Nitrogen 47 mg/dL (8-24); Bun/Creatinine Ratio 71.6 (12.0-20.0); CO2, Blood 21 mmol/L (21-32); Calcium, Blood 9.8 mg/dL (8.5-10.1); Chloride, Blood 114 mmol/L (98-108); Creatinine, Blood 0.66 mg/dL (0.40-1.00); Globulin, Blood 4.6 g/dL (2.2-4.0); Glomerular Filtration Rate 94 (60-); Glucose, Blood 152 mg/dL (70-99); Magnesium, Blood 2.5 mg/dL (1.6-2.4); Phosphorus, Blood 1.7 mg/dL (2.5-4.9); Potassium, Blood 4.3 mmol/L (3.5-5.5); Sodium, Blood 141 mmol/L (136-145); Total Protein, Blood 7.1 g/dL (6.4-8.2); Triglycerides 103 mg/dL (30-160)
== END | disposition home or self-care (01) ==
LOC: LAB 12:08 → LAB SHORT 12:08
PROVIDERS: Surgery
DX: N32.1 Vesicointestinal fistula (principal); N19 Unspecified kidney failure; E46 Unspecified protein-calorie malnutrition; K63.2 Fistula of intestine; E86.9 Volume depletion, unspecified
CPT/HCPCS: 80053; 83735; 84100; 84478

== ENCOUNTER → 2023-06-03 | Outpatient (CLI) | payer MEDICARE, OTHER ==
[2023-06-03 15:43] LABS: Alanine Aminotransfer (ALT/SGP 7 U/L (12-78); Albumin, Blood 2.4 g/dL (3.4-5.0); Albumin/Globulin Ratio 0.6 (0.8-1.8); Alk Phos 56 U/L (50-136); Anion Gap 9 mmol/L (3-11); Aspartate Aminotrans (AST/SGOT 8 U/L (12-37); Bilirubin, Total 0.2 mg/dL (0.1-1.0); Blood Urea Nitrogen 58 mg/dL (8-24); Bun/Creatinine Ratio 76.2 (12.0-20.0); CO2, Blood 21 mmol/L (21-32); Chloride, Blood 117 mmol/L (98-108); Creatinine, Blood 0.76 mg/dL (0.40-1.00); Glomerular Filtration Rate 84 (60-); Glucose, Blood 134 mg/dL (70-99); Magnesium, Blood 2.7 mg/dL (1.6-2.4); Phosphorus, Blood 1.9 mg/dL (2.5-4.9); Potassium, Blood 4.2 mmol/L (3.5-5.5); Sodium, Blood 143 mmol/L (136-145); Total Protein, Blood 6.4 g/dL (6.4-8.2); Triglycerides 98 mg/dL (30-160)
[2023-06-03 15:48] LABS: BASOPHILS ABSOLUTE AUTO 0.14 K/mm3 (0.00-0.23); BASOPHILS PERCENT AUTO 1 % (0-2); EOSINOPHILS ABSOLUTE AUTO 0.57 K/mm3 (0.00-0.68); EOSINOPHILS PERCENT AUTO 4 % (0-6); Hematocrit 33.4 % (33.0-51.0); Hemoglobin 10.3 g/dL (11.5-16.0); IMMATURE GRAN ABSOLUTE AUTO 0.09 K/mm3 (0.00-0.10); IMMATURE GRAN PERCENT AUTO 1 % (0-1); LYMPHOCYTES ABSOLUTE AUTO 1.58 K/mm3 (0.84-5.20); LYMPHOCYTES PERCENT AUTO 11 % (21-46); MONOCYTES ABSOLUTE AUTO 1.41 K/mm3 (0.16-1.47); MONOCYTES PERCENT AUTO 9 % (4-13); Mean Corpuscular HGB Conc 30.8 g/dL (31.5-36.5); Mean Corpuscular Volume 88 fL (80-100); NEUTROPHILS ABSOLUTE AUTO 11.14 K/mm3 (1.96-9.15); NEUTROPHILS PERCENT AUTO 75 % (41-73); RDW Coefficient Variation 18.8 % (11.7-14.2); RDW Standard Deviation 60.3 fL (35.1-46.3); Red Blood Cell Count 3.81 M/mm3 (3.80-5.20); White Blood Cell Count 14.93 K/mm3 (4.00-11.30)
== END | disposition home or self-care (01) ==
LOC: LAB SHORT 13:48 → LAB EV 13:48
PROVIDERS: Surgery
DX: T81.32XD Disruption of internal operation (surgical) wound, not elsewhere classified, subsequent encounter (principal); N19 Unspecified kidney failure; E46 Unspecified protein-calorie malnutrition
CPT/HCPCS: 80053; 83735; 84100; 84478; 85025

== ENCOUNTER → 2023-07-13 | Outpatient (CLI) | payer MEDICARE, OTHER ==
[~2023-07-13] MED LIST changes: +BENADRYL25 MG PO; +CEFTRIAXON1 GM/50 M1; +EPIPEN0.3 MG/0.3 IM; +HYDMOR4 PO; +METR250 PO; +Methocarbamol750 MG PO; +NALOXONE H0.4 MG/1 M IM
[2023-07-13 14:32] LABS: BASOPHILS ABSOLUTE AUTO 0.11 K/mm3 (0.00-0.23); BASOPHILS PERCENT AUTO 1 % (0-2); EOSINOPHILS ABSOLUTE AUTO 0.49 K/mm3 (0.00-0.68); EOSINOPHILS PERCENT AUTO 4 % (0-6); Hematocrit 23.7 % (33.0-51.0); Hemoglobin 7.6 g/dL (11.5-16.0); IMMATURE GRAN ABSOLUTE AUTO 0.08 K/mm3 (0.00-0.10); IMMATURE GRAN PERCENT AUTO 1 % (0-1); LYMPHOCYTES ABSOLUTE AUTO 1.46 K/mm3 (0.84-5.20); LYMPHOCYTES PERCENT AUTO 11 % (21-46); MONOCYTES ABSOLUTE AUTO 1.04 K/mm3 (0.16-1.47); MONOCYTES PERCENT AUTO 8 % (4-13); Mean Corpuscular HGB 27.2 pg (26.0-34.0); Mean Corpuscular HGB Conc 32.1 g/dL (31.5-36.5); Mean Corpuscular Volume 85 fL (80-100); NEUTROPHILS ABSOLUTE AUTO 9.89 K/mm3 (1.96-9.15); NEUTROPHILS PERCENT AUTO 76 % (41-73); RDW Coefficient Variation 17.4 % (11.7-14.2); RDW Standard Deviation 54.3 fL (35.1-46.3); Red Blood Cell Count 2.79 M/mm3 (3.80-5.20); White Blood Cell Count 13.07 K/mm3 (4.00-11.30)
[2023-07-13 15:24] LABS: Alanine Aminotransfer (ALT/SGP 68 U/L (12-78); Albumin, Blood 2.1 g/dL (3.4-5.0); Albumin/Globulin Ratio 0.5 (0.8-1.8); Alk Phos 136 U/L (50-136); Anion Gap 13 mmol/L (3-11); Aspartate Aminotrans (AST/SGOT 43 U/L (12-37); Bilirubin, Total 0.3 mg/dL (0.1-1.0); Blood Urea Nitrogen 43 mg/dL (8-24); Bun/Creatinine Ratio 66.2 (12.0-20.0); CO2, Blood 19 mmol/L (21-32); Calcium, Blood 10.1 mg/dL (8.5-10.1); Chloride, Blood 107 mmol/L (98-108); Creatinine, Blood 0.65 mg/dL (0.40-1.00); Globulin, Blood 4.4 g/dL (2.2-4.0); Glomerular Filtration Rate 94 (60-); Glucose, Blood 94 mg/dL (70-99); Magnesium, Blood 2.1 mg/dL (1.6-2.4); Phosphorus, Blood 3.9 mg/dL (2.5-4.9); Potassium, Blood 4.8 mmol/L (3.5-5.5); Sodium, Blood 134 mmol/L (136-145); Total Protein, Blood 6.5 g/dL (6.4-8.2); Triglycerides 107 mg/dL (30-160)
[2023-07-13 15:46] LABS: Mean Platelet Volume 8.5 fL (9.1-12.4); Platelet Count 867 K/mm3 (150-400)
== END ==
LOC: LAB 12:32 → LAB SHORT 12:32
PROVIDERS: Surgery
DX: N32.1 Vesicointestinal fistula (principal); Z79.899 Other long term (current) drug therapy
CPT/HCPCS: 80053; 82330; 83735; 84100; 84478; 85025; 86140

== ENCOUNTER → 2023-07-20 | Outpatient (CLI) | payer MEDICARE, OTHER ==
[2023-07-20 12:28] LABS: BASOPHILS ABSOLUTE AUTO 0.12 K/mm3 (0.00-0.23); BASOPHILS PERCENT AUTO 1 % (0-2); EOSINOPHILS ABSOLUTE AUTO 0.43 K/mm3 (0.00-0.68); EOSINOPHILS PERCENT AUTO 5 % (0-6); Hematocrit 22.5 % (33.0-51.0); IMMATURE GRAN ABSOLUTE AUTO 0.03 K/mm3 (0.00-0.10); IMMATURE GRAN PERCENT AUTO 0 % (0-1); LYMPHOCYTES ABSOLUTE AUTO 1.09 K/mm3 (0.84-5.20); LYMPHOCYTES PERCENT AUTO 12 % (21-46); MONOCYTES ABSOLUTE AUTO 0.85 K/mm3 (0.16-1.47); MONOCYTES PERCENT AUTO 9 % (4-13); Mean Corpuscular HGB 26.5 pg (26.0-34.0); Mean Corpuscular HGB Conc 31.1 g/dL (31.5-36.5); Mean Corpuscular Volume 85 fL (80-100); Mean Platelet Volume 8.3 fL (9.1-12.4); NEUTROPHILS ABSOLUTE AUTO 6.84 K/mm3 (1.96-9.15); NEUTROPHILS PERCENT AUTO 73 % (41-73); Platelet Count 693 K/mm3 (150-400); RDW Coefficient Variation 17.3 % (11.7-14.2); RDW Standard Deviation 54.5 fL (35.1-46.3); Red Blood Cell Count 2.64 M/mm3 (3.80-5.20); White Blood Cell Count 9.36 K/mm3 (4.00-11.30)
[2023-07-20 12:52] LABS: Magnesium, Blood 1.7 mg/dL (1.6-2.4); Prealbumin, Blood 13.6 mg/dL (20.0-40.0)
[2023-07-20 12:58] LABS: Alanine Aminotransfer (ALT/SGP 12 U/L (12-78); Albumin, Blood 2.1 g/dL (3.4-5.0); Albumin/Globulin Ratio 0.5 (0.8-1.8); Alk Phos 96 U/L (50-136); Anion Gap 12 mmol/L (3-11); Aspartate Aminotrans (AST/SGOT <3 U/L (12-37); Bilirubin, Total 0.2 mg/dL (0.1-1.0); Blood Urea Nitrogen 49 mg/dL (8-24); Bun/Creatinine Ratio 67.9 (12.0-20.0); CO2, Blood 17 mmol/L (21-32); Calcium, Blood 10.1 mg/dL (8.5-10.1); Chloride, Blood 112 mmol/L (98-108); Creatinine, Blood 0.72 mg/dL (0.40-1.00); Globulin, Blood 3.9 g/dL (2.2-4.0); Glomerular Filtration Rate 89 (60-); Glucose, Blood 106 mg/dL (70-99); Phosphorus, Blood 3.5 mg/dL (2.5-4.9); Potassium, Blood 4.5 mmol/L (3.5-5.5); Sodium, Blood 136 mmol/L (136-145); Triglycerides 42 mg/dL (30-160)
== END ==
LOC: LAB SHORT 11:53 → LAB 11:53
PROVIDERS: Surgery
DX: N32.1 Vesicointestinal fistula (principal); E43 Unspecified severe protein-calorie malnutrition
CPT/HCPCS: 80053; 82330; 83735; 84100; 84134; 84478; 85025; 86140

== ENCOUNTER → 2023-07-23 | Outpatient (CLI) | payer MEDICARE, OTHER ==
[2023-07-23 14:22] LABS: BASOPHILS ABSOLUTE AUTO 0.11 K/mm3 (0.00-0.23); BASOPHILS PERCENT AUTO 1 % (0-2); EOSINOPHILS ABSOLUTE AUTO 0.48 K/mm3 (0.00-0.68); EOSINOPHILS PERCENT AUTO 5 % (0-6); Hematocrit 21.8 % (33.0-51.0); Hemoglobin 6.6 g/dL (11.5-16.0); IMMATURE GRAN ABSOLUTE AUTO 0.04 K/mm3 (0.00-0.10); IMMATURE GRAN PERCENT AUTO 0 % (0-1); LYMPHOCYTES ABSOLUTE AUTO 1.05 K/mm3 (0.84-5.20); LYMPHOCYTES PERCENT AUTO 10 % (21-46); MONOCYTES PERCENT AUTO 11 % (4-13); Mean Corpuscular HGB Conc 30.3 g/dL (31.5-36.5); Mean Corpuscular Volume 86 fL (80-100); Mean Platelet Volume 8.3 fL (9.1-12.4); NEUTROPHILS ABSOLUTE AUTO 7.43 K/mm3 (1.96-9.15); NEUTROPHILS PERCENT AUTO 73 % (41-73); Platelet Count 668 K/mm3 (150-400); RDW Coefficient Variation 17.7 % (11.7-14.2); RDW Standard Deviation 55.8 fL (35.1-46.3); Red Blood Cell Count 2.54 M/mm3 (3.80-5.20); White Blood Cell Count 10.21 K/mm3 (4.00-11.30)
== END ==
LOC: LAB 12:05 → LAB SHORT 12:05
PROVIDERS: Surgery
DX: N32.1 Vesicointestinal fistula (principal)
CPT/HCPCS: 85025

== ENCOUNTER 2023-07-29 10:16 | Emergency (ER) | payer MEDICARE, OTHER ==
[~2023-07-29] VITALS: Ht 157.5 cm; Wt 36.3 kg
[~2023-07-29 10:16] MED LIST changes: -BENADRYL25 MG PO; -CEFTRIAXON1 GM/50 M1; -EPIPEN0.3 MG/0.3 IM; -HYDMOR4 PO; -METR250 PO; -Methocarbamol750 MG PO; -NALOXONE H0.4 MG/1 M IM
[2023-07-29] MEDS ORDERED: Methocarbamol750 MG PO (10:39)
[2023-07-29] MEDS ORDERED: METR250 PO (10:40)
[2023-07-29] MEDS ORDERED: CEFTRIAXON1 GM/50 M1 (10:41)
[2023-07-29] MEDS ORDERED: BENADRYL25 MG PO (10:41)
[2023-07-29] MEDS ORDERED: NALOXONE H0.4 MG/1 M IM (10:42)
[2023-07-29] MEDS ORDERED: HYDMOR4 PO (10:42)
[2023-07-29] MEDS ORDERED: EPIPEN0.3 MG/0.3 IM (10:42)
[2023-07-29 10:59] LABS: BASOPHILS PERCENT AUTO 1 % (0-2); EOSINOPHILS ABSOLUTE AUTO 0.46 K/mm3 (0.00-0.68); EOSINOPHILS PERCENT AUTO 4 % (0-6); Hematocrit 23.1 % (33.0-51.0); Hemoglobin 7.3 g/dL (11.5-16.0); IMMATURE GRAN ABSOLUTE AUTO 0.04 K/mm3 (0.00-0.10); IMMATURE GRAN PERCENT AUTO 0 % (0-1); LYMPHOCYTES PERCENT AUTO 11 % (21-46); MONOCYTES ABSOLUTE AUTO 1.03 K/mm3 (0.16-1.47); MONOCYTES PERCENT AUTO 10 % (4-13); Mean Corpuscular HGB 26.1 pg (26.0-34.0); Mean Corpuscular HGB Conc 31.6 g/dL (31.5-36.5); Mean Corpuscular Volume 83 fL (80-100); Mean Platelet Volume 8.5 fL (9.1-12.4); NEUTROPHILS ABSOLUTE AUTO 7.86 K/mm3 (1.96-9.15); NEUTROPHILS PERCENT AUTO 74 % (41-73); Platelet Count 653 K/mm3 (150-400); RDW Coefficient Variation 17.5 % (11.7-14.2); RDW Standard Deviation 52.3 fL (35.1-46.3); White Blood Cell Count 10.69 K/mm3 (4.00-11.30)
[2023-07-29 11:12] LABS: Bun/Creatinine Ratio 78.2 (12.0-20.0); Calcium, Blood 10.1 mg/dL (8.5-10.1); Creatinine, Blood 0.56 mg/dL (0.40-1.00); Potassium, Blood 4.4 mmol/L (3.5-5.5)
[2023-07-29] MEDS ORDERED: Alteplase Recombinant 2 MG / Vial IV ONE (11:40)
[2023-07-29] MEDS ORDERED: Morphine Sulfate 20 MG/1ML 1 ML Oral Syringe PO ONE (12:05)
--- NOTE | 2023-07-29 12:28 | NUR ---
Review of patient with physician and staff. Pt resting in bed looks frail and distraught about her care needs. Reviewed support from palliative care and assessed the eight domains of care with her and her . Pt denies headaches and or visual disturbance. Pt denies any difficulties with swallowing or her teeth. She cmplains of chronic nausea and difficulty sleeping she states she does not really sleep it is mostly just nodding off. Pt denies much back or leg pain states most of her pain is in the abdomen and much preassure. Pt became very tearfull and said I am dying and I want to be home. She is worried about being admitted to hospital. She states the doctors were worried about her anemia and advied her to come to ER. We are going to try to open her picc with cath flow. updated her that if her numbers are bettter we will not transfuse her and the risks of repeat transfussions. Pt wants to see her mother and speak with her. She has dementia but her brothers are supposed to bring her to the house. Advised her to that even if it is one way holding her hand and talking will probaly be wheat she needs ro process her stress. Praised her and her for their dilligance and preserverance. We discussed that they and only they can make the choices. Advised them that if they dont want transfussions or admission to hospital they can say no. Discussed that if suffering it to much they can trnsition to hospice when they are ready and be comfortable. pt acknowledged her stress she has been sitting on and how it has affected their lives. Spoke with , he is also very ill and relayed all his health issues. They are dealing with settling their estate and getting a POA and a will. Gave him some information on resources for trust, POA and POLST. Advised him will have [facility] help with a POLST. It was to much for today and nursing was accessing PICC. Gave them contact information for our department will follow up with [facility]. Requested pain medication for patient will Call and update physicians. kps score is 30%.
[2023-07-29 12:34] LABS: Magnesium, Blood 2.2 mg/dL (1.6-2.4); Phosphorus, Blood 3.4 mg/dL (2.5-4.9); Triglycerides 73 mg/dL (30-160)
[2023-07-29 15:00] VITALS: BP 118/58
== END 2023-07-29 15:14 | disposition home or self-care (01) ==
LOC: ER 10:16
PROVIDERS: Emergency Medicine
DX: T82.594A Other mechanical complication of infusion catheter, initial encounter (principal); D64.9 Anemia, unspecified; F17.210 Nicotine dependence, cigarettes, uncomplicated; E03.9 Hypothyroidism, unspecified; Z79.899 Other long term (current) drug therapy
CPT/HCPCS: 37195; 80048; 83735; 84100; 84478; 85025; 86850; 86900; 86901; 99285-25; A9270; J2997

== ENCOUNTER → 2023-07-30 | Outpatient (CLI) | payer MEDICARE, OTHER ==
[~2023-07-30] MED LIST changes: +BENADRYL25 MG PO; +CEFTRIAXON1 GM/50 M1; +EPIPEN0.3 MG/0.3 IM; +HYDMOR4 PO; +METR250 PO; +Methocarbamol750 MG PO; +NALOXONE H0.4 MG/1 M IM
[2023-07-30 14:43] LABS: BASOPHILS PERCENT AUTO 1 % (0-2); EOSINOPHILS ABSOLUTE AUTO 0.38 K/mm3 (0.00-0.68); EOSINOPHILS PERCENT AUTO 4 % (0-6); Hematocrit 23.4 % (33.0-51.0); Hemoglobin 7.4 g/dL (11.5-16.0); IMMATURE GRAN ABSOLUTE AUTO 0.16 K/mm3 (0.00-0.10); IMMATURE GRAN PERCENT AUTO 2 % (0-1); LYMPHOCYTES PERCENT AUTO 14 % (21-46); MONOCYTES ABSOLUTE AUTO 0.91 K/mm3 (0.16-1.47); MONOCYTES PERCENT AUTO 8 % (4-13); Mean Corpuscular HGB 25.7 pg (26.0-34.0); Mean Corpuscular HGB Conc 31.6 g/dL (31.5-36.5); Mean Corpuscular Volume 81 fL (80-100); Mean Platelet Volume 8.2 fL (9.1-12.4); NEUTROPHILS PERCENT AUTO 72 % (41-73); Platelet Count 636 K/mm3 (150-400); RDW Coefficient Variation 17.5 % (11.7-14.2); RDW Standard Deviation 51.8 fL (35.1-46.3); Red Blood Cell Count 2.88 M/mm3 (3.80-5.20); White Blood Cell Count 10.85 K/mm3 (4.00-11.30)
[2023-07-30 15:05] LABS: Albumin, Blood 2.2 g/dL (3.4-5.0); Albumin/Globulin Ratio 0.5 (0.8-1.8); Bilirubin, Total 0.2 mg/dL (0.1-1.0); Bun/Creatinine Ratio 62.1 (12.0-20.0); C-REACTIVE PROTEIN, EXT RANGE 3.88 mg/dL (0.000-0.300); Calcium, Blood 10.4 mg/dL (8.5-10.1); Creatinine, Blood 0.63 mg/dL (0.40-1.00); Globulin, Blood 4.1 g/dL (2.2-4.0); Magnesium, Blood 2.5 mg/dL (1.6-2.4); Phosphorus, Blood 3.6 mg/dL (2.5-4.9); Potassium, Blood 3.9 mmol/L (3.5-5.5); Prealbumin, Blood 14.7 mg/dL (20.0-40.0); Total Protein, Blood 6.3 g/dL (6.4-8.2)
== END ==
LOC: LAB 13:40 → LAB SHORT 13:40
PROVIDERS: Surgery
DX: N32.1 Vesicointestinal fistula (principal); L51.9 Erythema multiforme, unspecified; I26.99 Other pulmonary embolism without acute cor pulmonale; I95.9 Hypotension, unspecified; K63.2 Fistula of intestine; T81.41XD Infection following a procedure, superficial incisional surgical site, subsequent encounter
CPT/HCPCS: 80053; 82330; 83735; 84100; 84134; 85025; 86140

== ENCOUNTER → 2023-08-03 | Outpatient (CLI) | payer MEDICARE, OTHER ==
[2023-08-03 11:32] LABS: Albumin, Blood 1.9 g/dL (3.4-5.0); Albumin/Globulin Ratio 0.5 (0.8-1.8); Bilirubin, Total 0.3 mg/dL (0.1-1.0); Bun/Creatinine Ratio 73.2 (12.0-20.0); C-REACTIVE PROTEIN, EXT RANGE 7.86 mg/dL (0.000-0.300); Calcium, Blood 9.1 mg/dL (8.5-10.1); Creatinine, Blood 0.6 mg/dL (0.40-1.00); Magnesium, Blood 2.1 mg/dL (1.6-2.4); Phosphorus, Blood 3.1 mg/dL (2.5-4.9); Potassium, Blood 4.8 mmol/L (3.5-5.5); Prealbumin, Blood 10.2 mg/dL (20.0-40.0); Total Protein, Blood 5.9 g/dL (6.4-8.2)
[2023-08-03 12:05] LABS: Triglycerides 70 mg/dL (30-160)
== END | disposition home or self-care (01) ==
LOC: LAB 10:02 → LAB SHORT 10:02
PROVIDERS: Surgery
DX: I26.99 Other pulmonary embolism without acute cor pulmonale (principal); N32.1 Vesicointestinal fistula; T81.41XD Infection following a procedure, superficial incisional surgical site, subsequent encounter; K63.2 Fistula of intestine; I95.9 Hypotension, unspecified; L51.9 Erythema multiforme, unspecified
CPT/HCPCS: 80053; 82330; 83735; 84100; 84134; 84478; 86140

== ENCOUNTER → 2023-08-10 | Outpatient (CLI) | payer MEDICARE, OTHER ==
[2023-08-10 13:30] LABS: BASOPHILS PERCENT AUTO 1 % (0-2); EOSINOPHILS ABSOLUTE AUTO 0.32 K/mm3 (0.00-0.68); EOSINOPHILS PERCENT AUTO 4 % (0-6); Hematocrit 23.1 % (33.0-51.0); Hemoglobin 7.3 g/dL (11.5-16.0); IMMATURE GRAN PERCENT AUTO 1 % (0-1); LYMPHOCYTES ABSOLUTE AUTO 1.22 K/mm3 (0.84-5.20); LYMPHOCYTES PERCENT AUTO 14 % (21-46); MONOCYTES ABSOLUTE AUTO 1.21 K/mm3 (0.16-1.47); MONOCYTES PERCENT AUTO 14 % (4-13); Mean Corpuscular HGB 24.6 pg (26.0-34.0); Mean Corpuscular HGB Conc 31.6 g/dL (31.5-36.5); Mean Corpuscular Volume 78 fL (80-100); Mean Platelet Volume 8.3 fL (9.1-12.4); NEUTROPHILS ABSOLUTE AUTO 5.71 K/mm3 (1.96-9.15); NEUTROPHILS PERCENT AUTO 66 % (41-73); Platelet Count 749 K/mm3 (150-400); RDW Coefficient Variation 17.7 % (11.7-14.2); RDW Standard Deviation 50.5 fL (35.1-46.3); Red Blood Cell Count 2.97 M/mm3 (3.80-5.20); White Blood Cell Count 8.66 K/mm3 (4.00-11.30)
[2023-08-10 13:58] LABS: Magnesium, Blood 2.2 mg/dL (1.6-2.4)
[2023-08-10 13:59] LABS: Alanine Aminotransfer (ALT/SGP 7 U/L (12-78); Albumin/Globulin Ratio 0.5 (0.8-1.8); Alk Phos 67 U/L (50-136); Anion Gap 12 mmol/L (3-11); Aspartate Aminotrans (AST/SGOT 9 U/L (12-37); Bilirubin, Total 0.2 mg/dL (0.1-1.0); Blood Urea Nitrogen 31 mg/dL (8-24); Bun/Creatinine Ratio 52.5 (12.0-20.0); CO2, Blood 25 mmol/L (21-32); Calcium, Blood 9.5 mg/dL (8.5-10.1); Chloride, Blood 101 mmol/L (98-108); Creatinine, Blood 0.59 mg/dL (0.40-1.00); Globulin, Blood 3.9 g/dL (2.2-4.0); Glomerular Filtration Rate 96 (60-); Glucose, Blood 107 mg/dL (70-99); Phosphorus, Blood 3.6 mg/dL (2.5-4.9); Potassium, Blood 4.6 mmol/L (3.5-5.5); Prealbumin, Blood 7.5 mg/dL (20.0-40.0); Sodium, Blood 133 mmol/L (136-145); Total Protein, Blood 5.9 g/dL (6.4-8.2); Triglycerides 57 mg/dL (30-160)
== END | disposition home or self-care (01) ==
LOC: LAB SHORT 12:55 → LAB 12:55
PROVIDERS: Surgery
DX: Z45.2 Encounter for adjustment and management of vascular access device (principal); T81.41XD Infection following a procedure, superficial incisional surgical site, subsequent encounter; N32.1 Vesicointestinal fistula; C51.9 Malignant neoplasm of vulva, unspecified; I26.99 Other pulmonary embolism without acute cor pulmonale; K63.2 Fistula of intestine; Z79.899 Other long term (current) drug therapy
CPT/HCPCS: 80053; 82330; 83735; 84100; 84134; 84478; 85025; 86140